=== PATIENT | male | born 1965 | race Caucasian/White ===

== ENCOUNTER 2016-10-23 21:33 | Inpatient (IN) | payer OTHER ==
[~2016-10-23] VITALS: Ht 182.9 cm; Wt 70.3 kg
--- NOTE | ~2016-10-23 | HC ---
[facility] [place] [address] CONSULTATION Name: CHERYL HIGH JR Room #: 446-P [facility] IN M.R.#: [id number] Admission: 10/24/16 Attend Phys: Kobe Maya MD Discharge: 10/28/16 Date of : 63 Report #: [id number] THIS REPORT FOR: //name// CC: Kobe Maya Cara Hayesmen DATE OF SERVICE: 10/26/2016 HISTORY OF PRESENT ILLNESS: This is a 51-year-old male patient who was evaluated by me for an unusual history. He said he was with other people. I do not have any firsthand witness. He said he was feeling bad and people saw him shaking. He felt severely dizzy and it came spontaneously and then it resolved spontaneously. There was no associated paralysis with this. He does not feel he is back to normal and he still has numbness on the left side. REVIEW OF SYSTEMS: Positive for what appeared to be seizure. He said he had another episode of seizure-like activity about 1-1/2 year ago. He said he was admitted here, but I do not see any inpatient note here. 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 He is complaining of some episode which is pretty nonspecific at the moment. He denies any psychiatric history. The record indicates that his weakness on the left side was inconsistent. He has complained of multiple other nonspecific symptoms during his 14-point review of systems which was carried out. PAST MEDICAL HISTORY: Questionable seizure. FAMILY HISTORY: Negative for epilepsy. SOCIAL HISTORY: Is inconsistent and I do not know about social history because sometime he gives one history and the history he gives me does not correlate with the history which is in the record. He denies any alcohol use, but that history is different. He says he stopped smoking 14 days ago, but that history is different than the record. He denies any use of street drugs, but that history is different in the record and his alcohol level when he came was 165. PHYSICAL EXAMINATION: Indicate that he is alert, responsive, able to follow simple commands. His speech, concentration, fund of knowledge, and memory is at his baseline. Cranial nerve examination 2-12 was unremarkable except he does not cooperate very well with the visual field evaluation. He does not cooperate with the sense checking and he says he is weak on the left side. His weakness is inconsistent. He indicates he has absolutely no position sense in the left upper and left lower extremities. His reflexes are elicitable. He does not have any cerebellar sign on the right side. I could not have a very good look at the patient's fundus. His tone looks unremarkable. He is a reasonably well-developed individual who does not have any dysmorphic features of eyes, [facility] [address] [place] [address] CONSULTATION Name: CHERYL HIGH Room #: 446-P DIS IN M.R.#: [id number] Admission: 10/24/16 Attend Phys: Kobe Maya MD Discharge: 10/28/16 Date of : 63 Report #: [id number] ears, and face. His heart sounds looks unremarkable. He does not have any significant rhonchi on both sides, or does not have any respiratory difficulties. His pulses are difficult to feel. There is no edema, cyanosis or jaundice. His blood pressure is 112/60, respirations 20, pulse 64, temperature is 97.7. His MRI was reviewed and I reviewed the films and that is unremarkable. His labs indicate WBC count of 8.3. IMPRESSION: I am not certain the etiology of these symptoms. It is very difficult to be certain that there even organic and narrates as in spite of the fact he denies any psychiatric history. I will get some further workup done on him. I will first get an EEG done in this patient. I will try to do it tonight, then we might do an MRI of the C-spine to make sure there is no pathology there. As mentioned, his deficit is pretty inconsistent and if organic pathology is excluded, we have to consider psychiatric etiologies in this patient. [address] [address] CONSULTATION Name: HIGHCHERYL VASQUEZ Room #: 446-P [facility] IN M.R.#: [id number] Admission: 10/24/16 Attend Phys: Kobe Maya MD Discharge: 10/28/16 Date of : 63 Report #: [id number] RECOMMENDATIONS: 1. EEG. 2. MRI of the C-spine. 3. Presently continue Keppra, but I do not know whether he needs to be continued Keppra or not indefinitely. 4. He needs to take seizure precautions. Dr. Corea will take over the service tomorrow and follow up this patient tomorrow. I spent more than 50 minutes of face to face time was spent taking care of this patient and majority of that time was spent counseling this patient about health habits, compliance, his diagnosis, Diff his diagnosis, and the plan we are going to follow and co ordinaing his care . He understands all those and wants. to follow the above plan. <ELECTRONICALLY SIGNED> By: Henrik Nelson MD 10/29/16 1226 1720 0530 Henrik Nelson MD /nt
--- NOTE | ~2016-10-23 | EEG ---
[facility] [place] [address] ELECTROENCEPHALOGRAM Name: CHERYL HIGH Room #: 446-P [facility] IN M.R.#: [id number] Admission: 10/24/16 Attend Phys: Kobe Maya MD Discharge: 10/28/16 Date of : 63 Report #: [id number] THIS REPORT FOR: //name// CC: Kobe Maya Cara Singh DATE OF EE10/26/2016. This patient is being evaluated for the possibility of seizure. Background activity in this patient's EEG is about 7 Hz and 30 microvolts. It is a symmetrical activity. The patient went to sleep that is associated with bilaterally symmetrical sleep spindle and vertex sharp waves. Throughout the records, no active epileptiform activity was noticed. IMPRESSION: Moderately abnormal EEG because it is intermixed with theta range slowing on both sides. That is a nonspecific finding, which can occur with encephalopathy, effect of psychotropic medication, dementia, etc. Clinical correlation is recommended. Thank you very much for this referral. <ELECTRONICALLY SIGNED> By: Henrik Nelson MD 10/29/16 1227 0804 1039 Henrik Nelson MD /nt
--- NOTE | ~2016-10-23 | HC ---
[facility] [place] [address] CONSULTATION Name: CHERYL HIGH JR Room #: 446-P ADM IN M.R.#: [id number] Admission: 10/24/16 Attend Phys: Kobe Maya MD Discharge: Date of : 63 Report #: [id number] THIS REPORT FOR: //name// CC: Kobe Marroquin César Hayesmen DATE OF SERVICE: 10/25/2016 HISTORY OF PRESENT ILLNESS: The patient is a 51-year-old white male who was admitted with mental status changes and seizure-like episode with full body movement. He was noted to be intoxicated, alcohol level of 165. He was agitated and confused. He complained of his left side being heavier than his right side. MRI did not show any evidence of infarction or hemorrhage. Neurology is involved. He notes he has had some prior episodes of this and also notes almost of an aura that might occur prior to it happening. We are seeing him in rehabilitation medicine consultation. PAST MEDICAL HISTORY: Includes colon cancer in 2009, bipolar disorder, herniated disk from injury, depression, kidney failure with prior admission to hospital with one functioning kidney. HABITS: Current every day smoker, alcohol use weekly, also drug type THC. ALLERGIES: PENICILLIN. SOCIAL HISTORY: Lives with his mother and father, house, 4 steps in, plus another five steps inside. He did not utilize gait aids premorbidly. Mother is at home. Father noted to have Alzheimer's disease. REVIEW OF SYSTEMS: Did not offer any current complaints of chest pain, shortness of breath or abdominal discomfort. He notes he feels a kind of groggy at times and has concerns regarding recurrence. He complains of left-sided numbness and some left-sided weakness. No focal extremity pain complaints. PHYSICAL EXAMINATION: GENERAL: He is a 51-year-old white male in no obvious distress. VITAL SIGNS: Last recorded temperature 36.5, pulse 62, respirations 18, blood pressure 119/75. NEUROLOGIC: He is alert, follows basic commands without difficulty. Facies appeared to be symmetric. EOM appeared to intact, although he noted some decreased vision, some left-sided visual field decrease with testing. Functional range of motion and strength of the right upper and right lower extremity without focal weakness. 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 Strength of that left upper extremity is probably a grade 4- [address] [address] CONSULTATION Name: CHERYL HIGH Room #: 446-P [facility] IN M.R.#: [id number] Admission: 10/24/16 Attend Phys: Kobe Maya MD Discharge: Date of : 63 Report #: [id number] to 3+. Left lower extremity strength is probably 4- to 3+ as well. Tone appeared to be intact. With sensory testing utilizing simultaneous stimulation, he does have a left hemisensory decrease in left arm and left leg. ASSESSMENT: A 51-year-old white male with the following problem list: 1. Left-sided weakness with hemisensory decrease. 2. Seizure episode. Nicko's paralysis versus acute cerebrovascular accident, although the MRI did not show any abnormalities. Neurology is following. 3. Suspected polysubstance abuse. He did have elevated ETOH. 4. Tobacco abuse. 5. DVT prophylaxis. 6. History of colon cancer. 7. History of bipolar disorder. PLAN: Therapy evaluations are underway. We will be glad to assist regarding rehab therapy needs as he further medically stabilizes. By: [id number] 22 Kam Fields MD /nt
--- NOTE | ~2016-10-23 | D ---
[facility] [place] [address] DISCHARGE SUMMARY Name: CHERYL HIGH Room #: 446-P ADM IN M.R.#: [id number] Admission: 10/24/16 Attend Phys: Kobe Maya MD Discharge: Date of : 63 Report #: [id number] THIS REPORT FOR: //name// CC: Kobe Maya Cara Singh DATE OF SERVICE: 10/27/2016 The patient admitted to hospital on 10/24/2016, discharged from the hospital on 10/27/2016. HISTORY OF PRESENT ILLNESS: The patient is a 51-year-old man with chronic pain syndrome, related to back pain, who came to the hospital for altered level of consciousness and possible postictal status. Please refer to the admission H and P for details. In brief, seizure episode was not witnessed, and postictally, the patient had left-sided weakness. HOSPITALIZATION COURSE: The patient was hospitalized at [facility]. Neurologist was consulted. CT scan of the brain was negative for acute process. MRI of the brain was taken, that showed no evidence of CVA. Although left-sided weakness improved, it persisted. Nicko's paralysis was one of the considerations. For further evaluation, the patient had EEG, that showed no specific findings. Speech difficulty and left-sided weakness persisted, but slightly improved. The patient was seen and evaluated by rehabilitation medicine, and acute rehab was recommended. As noted, the patient also has history of chronic back pain. He states that he takes small amount of alcohol. He denies alcoholism. There was no evidence of alcohol withdrawal. Although polysubstance abuse was reported in the history, the patient strongly denied that. Unfortunately, urine drug screen was never collected. The patient's hospital stay was stable. Neurologist ordered C-spine MRI, which is pending at the time of this dictation. The patient's blood work is unremarkable, and he has been hemodynamically stable. Currently, the patient's condition is acceptable, for him to be transferred to the rehabilitation unit. DISCHARGE DIAGNOSES: 1. Suspected seizure activity, as detailed above. The patient is started on Keppra. 2. Left-sided weakness and speech difficulty, suspected Nicko's paralysis. No evidence of CVA on MRI. 3. Chronic back pain. The patient is to establish care at the pain clinic upon [address] [address] DISCHARGE SUMMARY Name: LENNOXCHERYL DARNELL Room #: 446-P [facility] IN M.R.#: [id number] Admission: 10/24/16 Attend Phys: Kobe Maya MD Discharge: Date of : 63 Report #: [id number] discharge from the Rehabilitation Unit. 4. Hypokalemia on admission, replaced. DISCHARGE MEDICATIONS: Please refer to the medication reconciliation list. FOLLOWUP PLAN: The patient will follow with neurologist as advised. DISPOSITION: The patient is transferred to the rehabilitation unit. I spent more than 30 minutes to coordinate the patient's discharge from the hospital. By: [id number] Maria De Jesus Rockwell MD /nt
[~2016-10-23 21:33] MED LIST: ALPRAZOLAM1 M1 PO; ALPRAZOLAM2 MG PO; AMITRIPTYLINE H50 M2 PO; BACTRIM DS TAB1 EACH PO; DEPAKOTE ER500 MG PO; DEPAKOTE500 MG PO; ENDOCET 5-3251 EACH PO; FLOMAX0.4 MG PO; IBUPROFEN 600600 M1 PO; MACROBID 100 M100 M1 PO; NAPROSYN500 MG PO; NORCO 5-325 TA1 EACH PO; NORCO 7.5-3251 EACH PO; NORFLEX100 MG PO; OXYCODONE HCL30 MG PO; OXYCONTIN CR 8080 M1 PO; PROAIR HFA8.5 GM INH; RISPERDAL4 M1 PO; TORADOL 10 MG T10 MG PO; TRAMADOL 50 MG50 MG PO; VICODIN 5-3001 EACH; ZOFRAN ODT4 MG PO
[2016-10-23 21:35] VITALS: BP 145/90
[2016-10-23 22:13] LABS: ABSOLUTE NEUTROPHILS 2.8 thou/uL (1.4-8.2); BASOPHILS 1.3 % (0.0-2.0); EOSINOPHILS 2.7 % (0.0-3.0); HEMATOCRIT 40.9 % (42.0-52.0); HEMOGLOBIN 13.7 gm/dL (14.0-18.0); LYMPHOCYTES 54.4 % (24.0-44.0); MCH 29.9 pg (26.0-34.0); MCHC 33.5 g/dL (28.0-37.0); MCV 89.1 fL (80.0-100.0); MONOCYTES 7.4 % (1.0-8.0); PLATELET COUNT 237 thou/uL (150-400); POLYS 34.2 % (36.0-66.0); RBC 4.59 mil/uL (4.50-6.00); RDW 13.8 % (10.5-14.5); WBC 8.3 thou/uL (4.0-11.0)
[2016-10-23 22:14] LABS: MANUAL DIFF NO
[2016-10-23 22:19] LABS: ANION GAP 14 mmol/L (7-16); BUN 20 mg/dL (7-18); CALCIUM 9.2 mg/dL (8.5-10.1); CHLORIDE 109 mmol/L (98-107); CO2 21 mmol/L (21-32); CREATININE 1.2 mg/dL (0.7-1.3); GLUCOSE 107 mg/dL (74-106); SODIUM 144 mmol/L (136-145)
[2016-10-23 22:25] LABS: ALKALINE PHOSPHATASE 81 U/L (46-116); MAGNESIUM 1.9 mg/dL (1.8-2.4); SALICYLATE < 2.8 mg/dL (2.8-20.0); SGOT 16 U/L (15-37); SGPT 22 U/L (30-65); TOTAL BILIRUBIN 0.6 mg/dL (<0.1-1.0); TOTAL PROTEIN 7.6 g/dL (6.4-8.2)
[2016-10-23 22:45] LABS: ACETAMINOPHEN < 2 ug/mL (10-30)
[2016-10-24 02:18] VITALS: BP 134/89
[2016-10-24 02:25] VITALS: BP 125/80
[2016-10-24 04:40] VITALS: BP 134/58
[2016-10-24 08:00] VITALS: BP 126/72
[2016-10-24 15:45] VITALS: BP 108/56
[2016-10-24 20:25] VITALS: BP 139/75
[2016-10-25 04:15] VITALS: BP 137/80
[2016-10-25 07:30] VITALS: BP 119/75
[2016-10-25 12:27] VITALS: BP 119/75
[2016-10-25 15:30] VITALS: BP 138/81
[2016-10-25 19:45] VITALS: BP 154/93
[2016-10-26 04:10] VITALS: BP 127/76
[2016-10-26 08:29] VITALS: BP 114/64
[2016-10-26 13:24] LABS: CREATININE 0.8 mg/dL (0.7-1.3); POTASSIUM 3.9 mmol/L (3.5-5.1)
[2016-10-26 15:49] VITALS: BP 112/60
[2016-10-26 19:40] VITALS: BP 186/113
[2016-10-27 04:46] VITALS: BP 139/86
[2016-10-27 08:46] VITALS: BP 123/70
[2016-10-27] MEDS ORDERED: NICOTINE TRANSD21 M1 TRANSDERM (11:14)
[2016-10-27] MEDS ORDERED: XANAX 0.5 MG0.5 MG PO (11:14)
[2016-10-27] MEDS ORDERED: KEPPRA 500 MG500 M1 PO (11:14)
[2016-10-27] MEDS ORDERED: HYDROCODON-ACE1 EAC7 PO (11:14)
[2016-10-27 15:47] VITALS: BP 140/83
[2016-10-27 19:32] VITALS: BP 131/78
[2016-10-27 20:00] VITALS: BP 131/78
[2016-10-28 04:39] VITALS: BP 133/76
[2016-10-28 06:15] LABS: CHOLESTEROL 130 mg/dL (<200); HDL CHOLESTEROL 50 mg/dL (>40); LDL CHOLESTEROL 66 mg/dL (<100); TC:HDL 2.6 Ratio (Not establshd); TRIGLYCERIDE 72 mg/dL (<150); VLDL 14 mg/dL (<40)
[2016-10-28 06:16] LABS: SERUM ASSESSMENT Clear
[2016-10-28 08:00] VITALS: BP 132/80
== END 2016-10-28 11:15 | DRG 101 ==
LOC: ER 21:33 → EROBS 10-24 01:59 → 4S 10-24 01:59
PROVIDERS: Emergency Medicine; Internal Medicine Endocrinology, Diabetes & Metabolism; Psychiatry & Neurology Neurology
DX: R56.9 Unspecified convulsions (principal); F10.10 Alcohol abuse, uncomplicated; F31.9 Bipolar disorder, unspecified; G89.29 Other chronic pain; M54.9 Dorsalgia, unspecified; E87.6 Hypokalemia; F17.210 Nicotine dependence, cigarettes, uncomplicated; G83.84 Todd's paralysis (postepileptic); Z71.6 Tobacco abuse counseling; Z85.038 Personal history of other malignant neoplasm of large intestine; Z88.0 Allergy status to penicillin
CPT/HCPCS: 10195

== ENCOUNTER 2016-10-27 16:23 | Inpatient (IN) | payer OTHER ==
[~2016-10-27] VITALS: Ht 182.9 cm; Wt 64.9 kg
--- NOTE | ~2016-10-27 | H ---
[facility] [place] [address] HISTORY AND PHYSICAL Name: CHERYL HIGH JR Room #: 516-1 ADM IN M.R.#: [id number] Admission: 10/28/16 Attend Phys: Kam Fields MD Discharge: Date of : 63 Report #: [id number] THIS REPORT FOR: //name// CC: Kam Lindsey DATE OF SERVICE: 10/28/2016 HISTORY OF PRESENT ILLNESS: The patient is a 51-year-old white male, originally admitted to [facility] 10/24/2016, with seizure-like episode and full body movement. He is agitated and confused. He was noted to be intoxicated with an alcohol level of 165. He complained of his left side being heavier than his right side. MRI did not show any evidence of infarction or hemorrhage. Neurology was involved and has diagnosed him with left-sided weakness with Nicko's paralysis. He is on Keppra and t.i.d. alprazolam. He still has some stuttering speech, but notes that his left-sided movement is improving and his sensation is starting to return. The EEG that was done was nonspecific with some theta range slowing on both sides. He continues to have functional deficits with his left-sided weakness, which is a definite decline from his premorbid status. He has now been admitted for acute in-hospital inpatient rehabilitation. PAST MEDICAL HISTORY: Includes colon cancer in 2008, bipolar disorder, herniated disk from injury, depression, kidney failure with prior to admission to the hospital with one functioning kidney. HABITS: Current every day smoker. Alcohol use weekly, also drug, type THC. ALLERGIES: PENICILLIN. SOCIAL HISTORY: Lives with his mother and father, house, 4 steps in plus another 5 steps inside. He did not utilize gait aids premorbidly. Mother is at home. Father is noted to have Alzheimer's disease. REVIEW OF SYSTEMS: Did not offer any current complaints of chest pain, shortness of breath or abdominal discomfort. No complaints of headache. He notes he will intermittently have these "episodes" with an aura, which neurology has been following. No focal extremity pain complaints. He did not offer any complaints of any bowel or bladder changes. Of note is the fact that he did have a prior fall with significant left periorbital ecchymosis. PHYSICAL EXAMINATION: GENERAL: He is a 51-year-old white male, in no obvious distress. VITAL SIGNS: Last recorded temperature and vital signs are currently being taken. The vitals prior to coming to rehab earlier this morning were 98.1, 62, 18, and 132/80[place] [address] HISTORY AND PHYSICAL Name: CHERYL HIGH Room #: 516-1 [facility] IN .R.#: [id number] Admission: 10/28/16 Attend Phys: Kam Fields MD Discharge: Date of : 63 Report #: [id number] HEENT: Again, reveals the left periorbital ecchymosis. He does have full extraocular movements and facies appeared symmetric. HEENT otherwise appeared benign. CHEST: Sounded clear to auscultation. CARDIAC: Regular rate and rhythm. ABDOMEN: Bowel sounds positive, nontender. GENITOURINARY: Deferred. RECTAL: Deferred. EXTREMITIES: He has functional range of motion of both upper extremities. He does have some mild weakness of that left upper extremity, a grade 4-/5 with some decreased inspector mechanical compared to the right. Left lower extremity mild weakness 4- to 4/5 compared to the right. DTRs were trace to 1. Sensory examination showed some mild decreased left upper and left lower extremity compared to the right. He appears to have mild coordination deficits of that left upper extremity with attempted mszypt-ao-nezl. Functionally, he is contact guard for basic transfers and he has been contact guard for short distance ambulation. NEUROLOGIC: He does have a stuttering type speech with fsud-it-kusabbal expressive deficits. ASSESSMENT: A 51-year-old white male with the following problem list: 1. Left-sided weakness with Nikco's paralysis. 2. Seizure episode with neurology involved. 3. Suspected polysubstance abuse. 4. Tobacco abuse. 5. History of colon cancer. 6. History of bipolar disorder. 7. Nephrolithiasis. 8. . 9. Witnessed seizure. 10. Fall with left periorbital ecchymosis. 11. Chronic back pain. 12. History of alcohol abuse. PLAN: The patient is admitted for acute in-hospital inpatient rehabilitation. From a postadmission physician evaluation perspective, there are no relevant changes since the preadmission screening. Please see the above review of prior and current medical and functional conditions and comorbidities. Please see the patient's prior and current functional status. As far as risk of complications, he does have the multiple medical comorbidities as noted above. Initial plan of care involves the interdisciplinary acute inpatient rehabilitation program with the goal of maximizing the patient's functional independence, so that he can hopefully return back to his prior living situation. Measurable functional goals would be for him to become modified independent with transfers, mobility and ADLs with hopes of returning back to his home setting. The goal is also to work on his communication issues with speech therapy. Prognosis is reasonably good. We would anticipate a fairly short length of stay of probably around 7-[address] [address] HISTORY AND PHYSICAL Name: CHERYL HIGH Room #: 516-1 ADM IN M.R.#: [id number] Admission: 10/28/16 Attend Phys: Kam Fields MD Discharge: Date of : 63 Report #: [id number] days pending progress. Potential barriers would include his multiple medical comorbidities and decreased functional status. The patient meets diagnostic criteria for an acute in-hospital inpatient rehabilitation stay. He meets medical necessity criteria. He does have the tolerance for an acute rehab level and has appropriate discharge goals back to the home setting. By: [id number] Kam Fields MD /nt
[~2016-10-27 16:23] MED LIST changes: +HYDROCODON-ACE1 EAC7 PO; +KEPPRA 500 MG500 M1 PO; +NICOTINE TRANSD21 M1 TRANSDERM; +XANAX 0.5 MG0.5 MG PO
[2016-10-28 16:00] VITALS: BP 138/86
== END 2016-10-28 19:30 | disposition left against medical advice (07) | DRG 93 ==
DX: G83.84 Todd's paralysis (postepileptic) (principal); R56.9 Unspecified convulsions; S05.12XA Contusion of eyeball and orbital tissues, left eye, initial encounter; F31.9 Bipolar disorder, unspecified; N20.0 Calculus of kidney; F17.210 Nicotine dependence, cigarettes, uncomplicated; G89.29 Other chronic pain; M54.9 Dorsalgia, unspecified; W19.XXXA Unspecified fall, initial encounter; Y93.89 Activity, other specified; Y92.89 Other specified places as the place of occurrence of the external cause; Y99.8 Other external cause status; Z88.0 Allergy status to penicillin; Z82.0 Family history of epilepsy and other diseases of the nervous system
CPT/HCPCS: 10112

== ENCOUNTER → 2017-01-13 | Outpatient (CLI) | payer OTHER ==
[~2017-01-13] VITALS: Ht 180.3 cm; Wt 62.1 kg
[~2017-01-13] MED LIST changes: +LISINOPRIL20 MG PO; +NORCO 10-325 T1 EACH PO; +VENTOLIN HFA 1818 GM INH; +ZANAFLEX4 MG PO
--- NOTE | ~2017-01-13 | HPC ---
[facility] [address] [place] [address] PAIN MANAGEMENT CONSULTATION Name: CHERYL HIGH JR Room #: REG [facility].#: [id number] Admission: 01/13/17 Attend Phys: Estefanía Horowitz MD Discharge: Date of : 63 Report #: [id number] THIS REPORT FOR: //name// CC: VANI FRIEDMAN DATE OF SERVICE: 01/13/2017 CHIEF COMPLAINT: Pain in the low back and pain down my right thigh. HISTORY OF PRESENT ILLNESS: The patient is a 51-year-old gentleman who has been referred to the pain clinic for evaluation of back and right anterior thigh pain. 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 He finds that the pain in his back radiates down the right anterior portion of his thigh. He rates that discomfort as a 7/10. He states that it impacts his life significantly. He is unable to play with his kids. He is unable to engage in activities of daily living, which he would like to engage in. He notes the pain is made worse with movement. Pain is better with use of medications. He describes his discomfort as continuous, steady, constant, burning, crushing, pounding and sharp. It involves his low back with radiation down into the right anterior thigh. He also has some upper mid back pain and discomfort. ALLERGIES: PENICILLIN, MORPHINE. MEDICATIONS: Albuterol 2 puffs q. 6 hours p.r.n., Zestril 20 mg daily, hydrocodone 10/325 q. 6 hours p.r.n., tizanidine 4 mg t.i.d. PAST MEDICAL HISTORY: 1. The patient states that he had colon cancer in 2008. He elected to ignore this and not follow up with his doctor. 2. Bipolar disorder, states that he does not take medication for this and feels that he is stable. 3. Depression. 4. Kidney failure and 1 episode of poor kidney functioning, which improved after hospitalization and treatment. Back problem, the patient has been told per his report that surgeons did not want to do surgery at this juncture. The patient released from hospital with an MRI that showed no evidence of infarct or hemorrhage. He states that he has been having strokes. Had left-sided weakness. PAST SURGICAL HISTORY: No surgeries. 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 He is not working at this juncture. He lives with his mother and father. Father has Alzheimer disease. Denies use of tobacco, states that he very seldom uses alcohol, was admitted to the hospital with a blood level of 165. REVIEW OF SYSTEMS: Questionnaire indicates generally good health, decreased appetite, asthma, headaches, fatigue, weakness, stroke. PHYSICAL EXAMINATION: Blood pressure 131/83, pulse 54, respiratory rate 16, room air saturation 100%. Height is 5 foot 11 inches, weight 137 pounds, BMI is 19.1. The patient walks with an antalgic gait. He complains of pain and discomfort in the lower portion of his back with pain radiating down into the right anterior thigh area. He notes some weakness, numbness, tingling in this area. The patient has decreased sensation to light touch and changes in the L3-L4 dermatomal distribution. IMPRESSION: 1. Lumbar radicular pain involving the right L3-L4 dermatomal pattern in the right anterior thigh. 2. Seizure disorder being evaluated by Neurology. 3. Tobacco abuse. 3. Alcohol use. Blood level 165 at the last hospitalization and the patient was noted to be somewhat intoxicated. 4. History of colon cancer -- patient states that he was told he had cancer and chose not to look into it further. 5. History of bipolar disorder. The patient appears stable today. There is no press of speech. He does not seem to be in a manic episode nor does he seemed to be super depressed. 6. Nephrolithiasis. 7. History of chronic back pain. RECOMMENDATIONS: We discussed treatment options with the patient. Risks and benefits of an epidural steroid injection were discussed. A model was used to indicate the area of probable pathology. The patient elects to proceed with an injection. Possible complications which could include but are not limited to infection, increased muscle soreness, bleeding, nerve damage, spinal headache were reviewed. The patient elects to proceed. PROCEDURE NOTE: The patient was placed in the prone position. Fluoroscopy was used to identify the L3-L4 interspace. The L3 and L4 vertebral bodies have lost disk space. There is significant arthritis noted. Bones are showing some signs of fusion. This area had been sterilely prepped with Betadine. 0.25% bupivacaine was infiltrated. A 17-gauge Tuohy with loss of resistance technique was used to gain access to the epidural space. There was no CSF, heme or paresthesia. A total of 80 mg Depo-Medrol, 40 mg triamcinolone and 2 mL of [facility] [address] [facility] [place] [address] PAIN MANAGEMENT CONSULTATION Name: [facility]ERYL HIGH [id number] Admission: 01/13/17 Attend Phys: Estefanía Horowitz MD Discharge: Date of : 63 Report #: [id number] 0.25% bupivacaine was injected. The patient tolerated the procedure well. There were no complications. His pain decreased to 6 at the time of this discharge. He will follow up in the future as needed. We would like to thank you for letting us participate in his care. We hope he continues to improve. <ELECTRONICALLY SIGNED> By: Estefanía Horowitz MD 01/18/17 [id number] Estefanía Horowitz MD /nt
[2017-01-13 13:14] VITALS: BP 131/83
== END | disposition home or self-care (01) ==
LOC: PAIN 08:44
DX: M54.16 Radiculopathy, lumbar region (principal); G89.29 Other chronic pain; J44.9 Chronic obstructive pulmonary disease, unspecified; F17.200 Nicotine dependence, unspecified, uncomplicated; G40.909 Epilepsy, unspecified, not intractable, without status epilepticus; Z85.038 Personal history of other malignant neoplasm of large intestine; Z86.59 Personal history of other mental and behavioral disorders; Z98.890 Other specified postprocedural states; Z88.0 Allergy status to penicillin; Z88.8 Allergy status to other drugs, medicaments and biological substances; Z79.899 Other long term (current) drug therapy

== ENCOUNTER 2017-10-29 13:12 | Emergency (ER) | payer OTHER ==
[~2017-10-29] VITALS: Ht 182.9 cm; Wt 71.2 kg
[2017-10-29] MEDS ORDERED: NORCO 5-325 TA1 EACH PO (14:28)
[2017-10-29] MEDS ORDERED: CLONIDINE1 EACH TRANSDERM (15:17)
[2017-10-29] MEDS ORDERED: HYDROCODONE-AP1 EAC6 PO (15:17)
[2017-10-29] MEDS ORDERED: FLOMAX0.4 MG PO (15:18)
[2017-10-29] MEDS ORDERED: TOPROL XL100 MG PO (15:18)
[2017-10-29] MEDS ORDERED: LIDOCAINE1 EACH TRANSDERM (15:18)
[2017-10-29 15:26] VITALS: BP 115/78
== END 2017-10-29 15:26 | disposition home or self-care (01) ==
LOC: ER 13:12
DX: S20.212A Contusion of left front wall of thorax, initial encounter (principal); Z88.5 Allergy status to narcotic agent; Z88.0 Allergy status to penicillin; Z87.891 Personal history of nicotine dependence; W10.8XXA Fall (on) (from) other stairs and steps, initial encounter; Y93.89 Activity, other specified; Y92.89 Other specified places as the place of occurrence of the external cause; Y99.8 Other external cause status

== ENCOUNTER → 2018-04-13 | Outpatient (CLI) | payer OTHER ==
[~2018-04-13] MED LIST changes: +CLONIDINE1 EACH TRANSDERM; +HYDROCODONE-AP1 EAC6 PO; +LIDOCAINE1 EACH TRANSDERM; +TOPROL XL100 MG PO
== END ==
LOC: ULTRA 10:03
DX: R22.1 Localized swelling, mass and lump, neck (principal)